=== PATIENT | female | born 1985 | race Caucasian/White ===

== ENCOUNTER 2021-06-19 23:24 | Emergency (ER) | payer MEDICAID ==
[~2021-06-19] VITALS: Ht 162.6 cm; Wt 54.4 kg
--- NOTE | 2021-06-19 23:36 | NUR ---
pt ambulated to room 5a c/o right ear pain.
--- NOTE | 2021-06-19 23:56 | NUR ---
DR. HIGHTOWER AT BEDSIDE FOR MSE
[2021-06-20] MEDS ORDERED: OXYC-128 PO (00:11)
[2021-06-20] MEDS ORDERED: CIPR7.5D EACH EAR (00:11)
[2021-06-20] MEDS ORDERED: OXYCODONE/APAP 5-325 MG TABLET PO ONE (00:15)
--- NOTE | 2021-06-20 00:19 | NUR ---
Patient discharged to home in stable condition. Written and verbal after care instructions given. Patient verbalizes understanding of instructions. Stressed follow up or return to ER for worsening s/s. Pt ambulated with steady gait. Pt was given percocet.
[2021-06-20 00:21] VITALS: BP 115/80
[2021-06-20] MEDS ORDERED: OXYCODONE/APAP 5-325 MG TABLET ONE (00:26)
== END 2021-06-20 00:22 | disposition home or self-care (01) ==
LOC: ER 23:29
DX: H60.91 Unspecified otitis externa, right ear (principal)
CPT/HCPCS: A4663